=== PATIENT | male | born 1975 | race Caucasian/White ===

== ENCOUNTER 2016-08-17 09:05 | Emergency (ER) | payer SELFPAY ==
[2016-08-17 10:43] VITALS: BP 181/114
--- NOTE | 2016-08-17 11:27 | UC ---
Truncal Trauma HPI - HPI Summary HPI Summary: 41 yo male slipped on icy deck one week ago. Injured left lateral chest. C/O pain with deep breath. No abd pain No dizziness today had a BM and noted blood in the bowel no rectal pain no hx hemorrhoids - History Of Current Complaint Chief Complaint: UCGI Stated Complaint: RECTAL COMPLAINT Time Seen by Provider: 08/17/16 10:48 Hx Obtained From: Patient Onset/Duration: Sudden Onset Onset Of Pain: Immediate Severity Initially: Severe Severity Currently: Severe Pain Intensity: 8 Pain Scale Used: 0-10 Numeric Mechanism Of Injury: Fall From A Standing Position Aggravating Factor(s): Movement, Deep Breathing, Cough Alleviating factor(s): Nothing - no relief with tylenol Associated Signs And Symptoms: Positive: Chest Pain Torso: 1 - pain - Allergies/Home Medications Allergies/Adverse Reactions: Allergies Allergy/AdvReac Type Severity Reaction Status Date / Time No Known Allergies Allergy Verified 08/17/16 10:36 PMH/Surg Hx/FS Hx/Imm Hx Previously Healthy: Yes Cardiovascular History Of: Reports: Hypertension - has not taken toprol x 2 years - Surgical History Surgical History: Yes Surgery Procedure, Year, and Place: Right knee ACl and MCL repair - Family History Known Family History: Positive: Hypertension - Social History Alcohol Use: Occasionally Substance Use Type: None Smoking Status (MU): Never Smoked Tobacco Review of Systems Constitutional: Negative Skin: Negative Eyes: Negative ENT: Negative Respiratory: Negative Cardiovascular: Chest Pain Gastrointestinal: Negative Genitourinary: Negative Motor: Negative Neurovascular: Negative Musculoskeletal: Negative Neurological: Negative Psychological: Negative All Other Systems Reviewed And Are Negative: Yes Physical Exam Triage Information Reviewed: Yes Appearance: Well-Appearing, Well-Nourished, Pain Distress Vital Signs: Initial Vital Signs Temp 98.2 F 08/17/16 10:31 Pulse 89 08/17/16 10:31 Resp 14 08/17/16 10:31 BP 181/114 08/17/16 10:31 Pulse Ox 100 08/17/16 10:31 Eye Exam: Normal ENT: Positive: Hearing grossly normal. Negative: Pharyngeal erythema, Nasal congestion, TMs normal Neck: Positive: Supple, Nontender, No Lymphadenopathy Respiratory: Positive: Lungs clear, Normal breath sounds, No respiratory distress, No accessory muscle use. Negative: Chest non-tender Cardiovascular: Positive: RRR, No Murmur, Pulses Normal Abdomen Description: Positive: Nontender, No Organomegaly, Soft, Other: - rectal exam /no hemorrhoid or fissure noted. Negative: CVA Tenderness (R), CVA Tenderness (L), Distended, Guarding, Hernia @, Hepatomegaly, Splenomegaly Bowel Sounds: Positive: Present Musculoskeletal Exam: Normal Musculoskeletal: Positive: ROM Intact, No Edema Neurological: Positive: Alert Psychological Exam: Normal Skin Exam: Normal Truncal Trauma Course/Dx - Course Course Of Treatment: no rib fx noted/left atelectasis. DECLINES NARCOTIC ANALGESIC - Differential Dx/Diagnosis Provider Diagnoses: RIB FRACTURE (clinically). ATELECTASIS. HYPERTENSION. RECTAL BLEEDING Discharge - Discharge Plan Condition: Stable Disposition: HOME Prescriptions: Metoprolol Succinate XL TAB* [Toprol XL TAB*] 50 mg PO BEDTIME #30 tab.xl Patient Education Materials: Rectal Bleeding (ED), Rib Fracture (ED), Hypertension (ED), Atelectasis (ED) Referrals: No Primary Care Phys,NOPCP [Primary Care Provider] - Additional Instructions: You need to find a hand striper recheck here for new or worsening symptoms XR did not show a rib fracture but clinically I suspect one deep breaths every hour while awake blood count pending restart antihypertensive YOU NEED A COLONOSCOPY FOR EVALUATION OF YOUR RECTAL BLEEDING
--- NOTE | 2016-08-17 11:34 | RAD ---
HISTORY: Fall, left-sided chest pain COMPARISONS: None VIEWS: 4, Frontal view of the chest with frontal and oblique views of the left hemithorax FINDINGS: There is no displaced rib fracture or pneumothorax. There is linear opacification of the left lung base. IMPRESSION: 1. NO APPRECIABLE DISPLACED RIB FRACTURE OR PNEUMOTHORAX. 2. LINEAR ATELECTASIS OF THE LEFT LUNG BASE.
[2016-08-18 10:30] LABS: Hematocrit 44 % (42-52); Hemoglobin 14.7 g/dl (14.0-18.0); Mean Corpuscular HGB Conc 34 g/dl (31-36); Mean Corpuscular Hemoglobin 28 pg (27-31); Mean Corpuscular Volume 83 fL (80-94); Mean Platelet Volume 7 um3 (7.4-10.4); Red Blood Count 5.24 10^6/ul (4.0-5.4); Red Cell Distribution Width 13 % (10.5-15); White Blood Count 7.3 10^3/ul (3.5-10.8)
== END 2016-08-17 12:19 | disposition home or self-care (01) ==
LOC: UCCORT 09:05
DX: S22.32XA Fracture of one rib, left side, initial encounter for closed fracture (principal); W00.0XXA Fall on same level due to ice and snow, initial encounter; Y92.9 Unspecified place or not applicable; J98.11 Atelectasis; I10 Essential (primary) hypertension; K62.5 Hemorrhage of anus and rectum
CPT/HCPCS: 36415; 85025; 99202; G0463